=== PATIENT | female | born 1965 | race Caucasian/White ===

== ENCOUNTER → 2016-10-31 | Outpatient (REF) | payer OTHER | LOC: M SFHCWAGY 13:27 | PROVIDERS: ATTEND Nurse Practitioner Women's Health | DX: N95.0 Postmenopausal bleeding (principal) | CPT/HCPCS: 88305; G0123 ==

== ENCOUNTER → 2016-11-02 | Outpatient (CLI) | payer OTHER ==
--- NOTE | 2016-11-02 14:44 | REP ---
Pelvic ultrasound including transabdominal and endovaginal ultrasound assessment: The bladder is well distended measuring 920 x 9.3 x 9.3 cm. The uterus is anteverted and normal size measuring 8.73 point and 5.4 cm. The endometrium is not thickened measuring up to 3.8 mm. The endometrium is otherwise unremarkable. The ovaries are normal size. The right ovary measures 2.2 x 2.1 by 2.0 cm. The left ovary measures 2.1 x 1.7 x 1.6 cm. There is a 1.2 cm left ovarian cyst. There are no ovarian solid masses on the right on the left. Impression: 1.2 cm left ovarian cyst. Otherwise, negative pelvic ultrasound.
== END ==
LOC: M WHC 13:24
PROVIDERS: ATTEND Nurse Practitioner Women's Health
DX: N95.0 Postmenopausal bleeding (principal)

== ENCOUNTER → 2017-01-18 | Outpatient (REF) | payer OTHER ==
[2017-01-18 20:24] LABS: BASO % 0.1 % (0.0-1.0); EOS # 0.1 K/mm3 (0.0-0.50); EOS % 1.6 % (0.0-3.0); LARGE UNSTAINED CELL # 0.1 K/mm3 (0.0-0.4); LARGE UNSTAINED CELL % 1.5 % (0.0-4.0); LYMPH # 1.1 K/mm3 (1.5-4.5); LYMPH % 15.3 % (24.0-44.0); MEAN CORPUSCULAR HEMOGLOBIN 30.1 pg (27.0-33.0); MEAN CORPUSCULAR HGB CONC 33.3 g/dl (32.0-36.5); MEAN CORPUSCULAR VOLUME 90.3 fl (80.0-96.0); MONO # 0.5 K/mm3 (0.0-0.8); NEUTROPHILS # 5.1 K/mm3 (1.8-7.7); NEUTROPHILS % 74.5 % (36.0-66.0); PLATELET COUNT, AUTOMATED 262 k/mm3 (150-450); RED CELL DISTRIBUTION WIDTH 13.2 % (11.5-14.5); WHITE BLOOD COUNT 6.9 K/mm3 (4.0-10.0)
[2017-01-21 00:06] LABS: Lyme Disease IgG/IgM Antibodie <0.91 ISR (0.00-0.90); Lyme Disease IgM Ab Quantitati <0.80 index (0.00-0.79)
== END ==
LOC: M LABDRWAD 08:45
PROVIDERS: ATTEND Physician Assistant
DX: R21 Rash and other nonspecific skin eruption (principal)

== ENCOUNTER → 2017-02-26 | Outpatient (REF) | payer OTHER | LOC: M LAB REF 10:14 | PROVIDERS: ATTEND Physician Assistant | DX: J06.9 Acute upper respiratory infection, unspecified (principal) ==

== ENCOUNTER → 2021-04-07 | Outpatient (REF) | payer OTHER | LOC: M PLALAB 07:48 | PROVIDERS: ATTEND Nurse Practitioner Women's Health | DX: Z12.4 Encounter for screening for malignant neoplasm of cervix (principal) ==

== ENCOUNTER 2024-06-02 15:37 | Emergency (ER) | payer OTHER ==
[~2024-06-02] VITALS: Ht 149.9 cm; Wt 48.1 kg
[2024-06-02] MEDS ORDERED: ONDA-282 PO (21:18)
[2024-06-02 21:26] VITALS: BP 127/75; TEMP 98.1; O2SAT 98
== END 2024-06-02 21:25 | disposition home or self-care (01) ==
LOC: M ED 15:37
DX: S09.90XA Unspecified injury of head, initial encounter (principal); S16.1XXA Strain of muscle, fascia and tendon at neck level, initial encounter; W01.10XA Fall on same level from slipping, tripping and stumbling with subsequent striking against unspecified object, initial encounter; Z79.83 Long term (current) use of bisphosphonates; Y92.009 Unspecified place in unspecified non-institutional (private) residence as the place of occurrence of the external cause; Y93.89 Activity, other specified; Y99.9 Unspecified external cause status

== ENCOUNTER 2024-09-23 07:13 | Day surgery (SDC) | payer OTHER ==
[~2024-09-23] VITALS: Ht 149.9 cm; Wt 46.7 kg
[~2024-09-23 07:13] MED LIST: ONDA-282 PO
[2024-09-23] MEDS ORDERED: LIDOCAINE 2% 100MG/5ML SDV (FOR ANES.) As Ordered ONE (08:11)
[2024-09-23] MEDS ORDERED: propofoL 200 MG/20 ML VIAL As Ordered ONE (08:11)
[2024-09-23 08:31] VITALS: TEMP 96.6
[2024-09-23 09:35] VITALS: BP 112/69; O2SAT 100
== END 2024-09-23 09:53 | disposition home or self-care (01) ==
LOC: M OPP 07:13
PROVIDERS: ATTEND Surgery
DX: Z12.11 Encounter for screening for malignant neoplasm of colon (principal)

== ENCOUNTER → 2024-11-17 | Outpatient (REF) | payer OTHER | LOC: M LAB REF 14:00 | PROVIDERS: ATTEND Family Medicine | DX: Z01.84 Encounter for antibody response examination (principal) ==